=== PATIENT | female | born 1965 | race Caucasian/White ===

== ENCOUNTER 2016-05-05 06:42 | Emergency (ER) | payer MEDICAID ==
[2016-05-05] MEDS ORDERED: HYDROmorphone 2 MG/ML Syringe IVPUSH ONE (06:51)
[2016-05-05 06:58] VITALS: BP 100/76
[2016-05-05] MEDS ORDERED: Ondansetron 4 MG/2 ML SDV IVPUSH ONE (07:00)
[2016-05-05] MEDS ORDERED: Sodium Chloride 0.9% 1,000 ML IV ONE (07:02)
--- NOTE | 2016-05-05 07:05 | EDM.PDOC ---
ED HPI Trauma - General Chief Complaint: Upper Extremity Injury/Pain Stated Complaint: INJURED WRIST Time Seen by Provider: 05/05/16 06:56 - History of Present Illness INITIAL COMMENTS - FREE TEXT/NARRATIVE: HISTORY AND PHYSICAL: History of present illness: The patient is a 51-year-old female who presents after losing her balance and falling last evening approximately 10:30 PM and complains of left wrist pain. The patient has a history of old injuries on her right leg and chronically uses a cane so she has some issues with balance and she fell last evening. She denies any preceding dizziness lightheadedness chest pain shortness of breath but has had some issues with her stomach and intermittent vomiting for which she has seen Dr. Lainez at [facility]. That workup is currently in progress. The patient last ate or drank anything last evening for dinner and did not take anything for pain. She delayed coming here because of issues with transportation he complains of pain localized to the wrist and denies any distal hand pain numbness or tingling and no proximal forearm elbow shoulder pain and no other associated trauma. Patient is right-hand dominant. With the fall she did not hit her head pass out or black out and has no head neck or back pain Review of systems: As per history of present illness and below otherwise all systems reviewed and negative. Past medical history: As per history of present illness and as reviewed below otherwise noncontributory. Surgical history: As per history of present illness and as reviewed below otherwise noncontributory. Social history: No reported history of drug or alcohol abuse. Family history: As per history of present illness and as reviewed below otherwise noncontributory. Physical exam: General: Well-developed thin female who is nontoxic and looks uncomfortable in the room. Her vital signs reviewed by me. HEENT: Atraumatic, normocephalic, negative for conjunctival pallor or scleral icterus, mucous membranes moist, throat clear, neck supple, nontender, trachea midline. There are no midline step-offs tenderness or defects of the cervical spine Lungs: Clear to auscultation, breath sounds equal bilaterally, chest nontender. Heart: S1S2, regular, negative for clicks, rubs, or JVD. Abdomen: Soft, nondistended, nontender. NABS Negative for costovertebral tenderness. Pelvis: Stable nontender. Genitourinary: Deferred. Rectal: Deferred. Extremities: Atraumatic throat extremities with full range of motion with the exception of the left wrist where there is a visible "S." deformity and swelling appreciated. There is diffuse tenderness at the wrist the pulses are intact and proximally at the forearm elbow humerus and clavicle there are no defects or deformities and distally neurovascular intact with good cap refill., . Neurovascular unremarkable. Neuro: Awake, alert, oriented. Motor and sensory unremarkable throughout. Exam nonfocal. Diagnostics: X-ray left wrist Therapeutics: Dilaudid Zofran 0732: This was discussed with Dr. Kelly Lopez who requests that we place the patient in a post mold and send her immediately to her clinic where she will reduce and castor. The patient and at bedside are aware of this and we will perform this post mold in the ER. I will not prescribe her pain medications and allow Dr. Lopez to do that. Patient is aware of this as well Impression: Distal radial fracture with ulnar styloid fracture left Definitive disposition and diagnosis as appropriate pending reevaluation and review of above. Allergies/ADRs: Allergies adhesive tape Allergy (Verified 05/05/16 06:54) Itching Latex, Natural Rubber Allergy (Verified 05/05/16 06:54) Burning prochlorperazine [From Compazine] Allergy (Verified 05/05/16 06:54) Pain Review of Systems - Review of Systems Review Of Systems: ROS reveals no pertinent complaints other than HPI. Trauma Exam - Physical Exam Exam: See Below (See dictation) Course - Vital Signs Last Recorded V/S: Last Vital Signs Temp 36.4 C 05/05/16 06:54 Pulse 93 05/05/16 06:54 Resp 18 05/05/16 06:54 BP 100/76 05/05/16 06:54 Pulse Ox 96 05/05/16 06:54 - Orders/Labs/Meds Orders: Active Orders 24 hr Category Date Time Status Wrist Comp Min 3V Rt [CR] Stat Exams 05/05/16 07:01 Taken Sodium Chloride 0.9% [Normal Saline] 1,000 ml Med 05/05/16 07:02 Active IV STAT Medication Orders Sodium Chloride (Normal Saline) 1,000 mls @ 999 mls/hr IV STAT ONE Stop: 05/05/16 08:02 Meds: Medications Generic Name Dose Route Start Last Admin Trade Name Debbie PRN Reason Stop Dose Admin Sodium Chloride 1,000 mls @ 999 mls/hr 05/05/16 07:02 Normal Saline IV 05/05/16 08:02 STAT ONE Discontinued Medications Generic Name Dose Route Start Last Admin Trade Name Debbie PRN Reason Stop Dose Admin Hydromorphone HCl 0.5 mg 05/05/16 06:51 05/05/16 06:59 Dilaudid IVPUSH 05/05/16 06:52 0.5 mg ONETIME ONE Administration Ondansetron HCl 4 mg 05/05/16 07:00 05/05/16 07:05 Zofran IVPUSH 05/05/16 07:01 4 mg ONETIME ONE Administration Departure - Departure Time of Disposition: 07:40 Disposition: Home, Self-Care 01 Condition: good Clinical Impression: Fracture of radius and ulna Qualifiers: Encounter type: initial encounter Fracture type: closed Laterality: left Qualified Code(s): S52.502A - Unspecified fracture of the lower end of left radius, initial encounter for closed fracture; S52.602A - Unspecified fracture of lower end of left ulna, initial encounter for closed fracture Forms: ED Department Discharge Additional Instructions: The following information is given to patients seen in the emergency department who are being discharged to home. This information is to outline your options for follow-up care. We provide all patients seen in our emergency department with a follow-up referral. The need for follow-up, as well as the timing and circumstances, are variable depending upon the specifics of your emergency department visit. If you don't have a primary care physician on staff, we will provide you with a referral. We always advise you to contact your personal physician following an emergency department visit to inform them of the circumstance of the visit and for follow-up with them and/or the need for any referrals to a consulting specialist. The emergency department will also refer you to a specialist when appropriate. This referral assures that you have the opportunity for followup care with a specialist. All of these measure are taken in an effort to provide you with optimal care, which includes your followup. Under all circumstances we always encourage you to contact your private physician who remains a resource for coordinating your care. When calling for followup care, please make the office aware that this follow-up is from your recent emergency room visit. If for any reason you are refused follow-up, please contact the [facility] emergency department at and ask to speak to the emergency department charge nurse. [facility] [address] [place] [address] [facility]Or[facility]opedic clinic Professional Building [address] [place] [address] [address] [place] [address] Please go immediately over to the building to see Dr. Kelly Lopez in her clinic for further fracture management. Please ask her for pain medications for home when you get there. Please do not take the splint off until you're seen in the clinic. Please also call and followup with your primary provider at [facility] for further care management of your other medical issues and return to ER as needed and as discussed - My Orders Last 24 Hours: My Active Orders 05/05/16 07:01 Wrist Comp Min 3V Rt [CR] Stat 05/05/16 07:02 Sodium Chloride 0.9% [Normal Saline] 1,000 ml IV STAT - Assessment/Plan Last 24 Hours: My Active Orders 05/05/16 07:01 Wrist Comp Min 3V Rt [CR] Stat 05/05/16 07:02 Sodium Chloride 0.9% [Normal Saline] 1,000 ml IV STAT
--- NOTE | 2016-05-05 13:46 | CR ---
EXAM DATE: 05/05/16 PATIENT'S AGE: 51 Patient: JON MAYBERRY Facility: [place], [place] Site . Site : [id number] Study: XRay Extremity Right wrist [id number]/23/2017 7:15:48 AM Ordering Physician: Dipika Pelletier Final Report: INDICATION: trauma. pt states fell last night, pain in right wrist FINDINGS: Three views of the right wrist show a distal right radius fracture which is mildly displaced and angulated. Fracture of the ulnar styloid which is also mildly displaced. No other evidence of acute fracture or dislocation. No other bony or soft tissue abnormalities identified. Dictated by Billy Rizzo MD @ 05/05/2016 7:29:15 AM Dictated by: Billy Rizzo MD @ 05/05/2016 07:29:31 (Electronic Signature) Report Signed by Proxy and Original Signed Document filed in the Medical Record. MTDD
== END 2016-05-05 07:57 | disposition home or self-care (01) ==
LOC: MERGE 06:42 → MW.ED 06:42
DX: S52.502A Unspecified fracture of the lower end of left radius, initial encounter for closed fracture (principal); S52.602A Unspecified fracture of lower end of left ulna, initial encounter for closed fracture; Z91.040 Latex allergy status; Z88.8 Allergy status to other drugs, medicaments and biological substances; W19.XXXA Unspecified fall, initial encounter
CPT/HCPCS: 73110; 96374; 96375; 99283; J1170; J2405; 99284

== ENCOUNTER → 2016-05-05 | Outpatient (CLI) | payer MEDICAID ==
--- NOTE | 2016-05-05 13:55 | CR ---
EXAMINATION: Left wrist HISTORY: Pain COMPARISON: 05/05/2016 TECHNIQUE: 2 views FINDINGS/IMPRESSION: There is a healing distal radius fracture, unchanged in position and alignment. Overlying cast material is noted. The previously demonstrated ulnar styloid fracture is not well ch aracterized.
== END ==
LOC: MW.CHORTHO 10:45
PROVIDERS: ATTEND Orthopaedic Surgery
DX: M25.532 Pain in left wrist (principal); S52.502D Unspecified fracture of the lower end of left radius, subsequent encounter for closed fracture with routine healing
CPT/HCPCS: 73100-26-LT; 73100-LT

== ENCOUNTER → 2016-05-09 | Outpatient (CLI) | payer MEDICAID ==
--- NOTE | 2016-05-10 09:15 | CR ---
EXAMINATION: Left wrist HISTORY: Fracture COMPARISON: 05/05/2016 TECHNIQUE: 2 views FINDINGS/IMPRESSION: There are healing distal radius and ulna fractures identified, unchanged in pos ition and alignment. Fine detail is obscured secondary to cast material.
== END | disposition home or self-care (01) ==
LOC: MW.CHORTHO 11:52
PROVIDERS: ATTEND Physician Assistant
DX: S52.502D Unspecified fracture of the lower end of left radius, subsequent encounter for closed fracture with routine healing (principal); S52.602D Unspecified fracture of lower end of left ulna, subsequent encounter for closed fracture with routine healing
CPT/HCPCS: 73100-26-LT; 73100-LT

== ENCOUNTER 2016-05-11 10:08 | Day surgery (SDC) | payer MEDICAID, OTHER ==
[~2016-05-11 10:08] MED LIST: Acetaminophen/oxyCODONE 325-5 MG Tab PO PRN; Lactated Ringers 1,000 ML IV SCH; Lidocaine 2% 5 ML SDV ONE; Midazolam 1 MG/ML 2 ML SDV ONE; Propofol 200 MG/20 ML SDV ONE; ceFAZolin 1 GM in Premix Bag 1 BAG IV SCH; fentaNYL 100 MCG/2 ML SDV ONE
--- NOTE | 2016-05-11 11:22 | PCM.OPNOTE ---
- General Post-Op/Procedure Note Date of Surgery/Procedure: 05/11/16 Operative Procedure(s): L wrist CR with PCP and open L CTR Post-Op Diagnosis: L CTS. L distal radius/uln styloid fx Anesthesia Technique: General LMA Primary Surgeon: Kelly Lopez Aircraft Load Controller: Sari Mcclain EBKelsey in mLs: 5 Condition: Good Free Text/Narrative:: tt=8 min #[id number]
--- NOTE | 2016-05-11 12:18 | PCM.PREANE ---
Preanesthetic Assessment - Anesthesia/Transfusion/Family Hx Anesthesia History: Prior Anesthesia Reaction Type of Anesthesia Reaction: Excessive Nausea/Vomiting Family History of Anesthesia Reaction: No Transfusion History: Prior Transfusion Without Reaction - Review of Systems General: No Symptoms Pulmonary: No Symptoms Cardiovascular: No Symptoms Gastrointestinal: No symptoms Neurological: No Symptoms Other: Reports: None - Physical Assessment NPO Status Date: 05/10/16 (sips with meds this am) O2 Sat by Pulse Oximetry: 98 Respiratory Rate: 18 Vital Signs: Last Vital Signs Temp 36.1 C 05/11/16 10:56 Pulse 65 05/11/16 10:56 Resp 18 05/11/16 10:56 BP 89/57 L 05/11/16 10:56 Pulse Ox 98 05/11/16 10:56 Height: 1.66 m Weight: 49.442 kg ASA Class: 3 Mental Status: Alert & Oriented x3 Airway Class: Mallampati = 2 Dentition: Reports: Normal Dentition ROM/Head Extension: Full Lungs: Clear to auscultation Cardiovascular: Regular Rate - Allergies Allergies/Adverse Reactions: Allergies Allergy/AdvReac Type Severity Reaction Status Date / Time adhesive tape Allergy Itching Verified 05/05/16 06:54 latex Allergy Rash Verified 11/10/15 19:34 Latex, Natural Rubber Allergy Burning Verified 05/05/16 06:54 prochlorperazine Allergy Pain Verified 05/05/16 06:54 [From Compazine] prochlorperazine edisylate Allergy Anaphylactic Verified 08/16/15 19:57 [From Compazine] Shock prochlorperazine maleate Allergy Anaphylactic Verified 08/16/15 19:57 [From Compazine] Shock bandaid Allergy Rash Uncoded 11/10/15 19:34 histex Allergy Other Uncoded 11/10/15 19:34 - Anesthesia Plan Pre-Op Medication Ordered: None - Acknowledgements Anesthesia Type Planned: General Anesthesia Pt an Appropriate Candidate for the Planned Anesthesia: Yes Alternatives and Risks of Anesthesia Discussed w Pt/Guardian: Yes Pt/Guardian Understands and Agrees with Anesthesia Plan: Yes Additional Comments: BMP pending PreAnesthesia Questionnaire HEENT History: Reports: Cataract, Glaucoma, Other (see below) Other HEENT History: wears glasses, has permanent lower dental bridge, hx of fx nose Cardiovascular History: Reports: Hypertension, PA Other Cardiovascular History: states had PA last summer...no stents put in. Denies current chest pain. Having syncopal episodes, ?orthostatic hpn? Bps 60- 80s. antihypertensive meds stopped yest. on diuretics. Will check K Respiratory History: Reports: Bronchitis, recurrent, COPD Gastrointestinal History: Reports: GERD Genitourinary History: Reports: None DIRECT CHILL CASTER History: Reports: Other OB/BYN History: hysterectomy Musculoskeletal History: Reports: Arthritis, Fracture Other Musculoskeletal History: left hip, right ankle, left ring and pinky finger Neurological History: Reports: Concussion, Migraines, Seizure Other Neuro History: hx of alcohol induced seizure 2 years ago Psychiatric History: Reports: Anxiety, Depression Endocrine/Metabolic History: Reports: Other (see below) Other Endocrine/Metabolic History: states has Hypoglycemia Hematologic History: Reports: Blood transfusion(s) Immunologic History: Reports: None Oncologic (Cancer) History: Reports: Uterine Dermatologic History: Reports: Eczema - Infectious Disease History Infectious Disease History: Reports: Chicken pox, None - Past Surgical History Head Surgeries/Procedures: Reports: None HEENT Surgical History: Reports: Visual Other HEENT Surgeries/Procedures: has right permanent occular implant Cardiovascular Surgical History: Reports: None Respiratory Surgical History: Reports: None GI Surgical History: Reports: None Female Surgical History: Reports: section, Hysterectomy Endocrine Surgical History: Reports: None Neurological Surgical History: Reports: None Musculoskeletal Surgical History: Reports: ORIF Other Musculoskeletal Surgeries/Procedures:: left hip, right ankle Oncologic Surgical History: Reports: None Dermatological Surgical History: Reports: None - SUBSTANCE USE Smoking Status *Q: Former Smoker Tobacco Use Within Last Twelve Months: No Second Hand Smoke Exposure: Yes Days Per Week of Alcohol Use: 7 Number of Drinks Per Day: 1 Total Drinks Per Week: 7 Recreational Drug Use History: Yes Recreational Drug Type: Reports: Marijuana/Hashish Recreational Drug Last Use: 2 days ago - HOME MEDS Home Medications: Home Meds Losartan/Hydrochlorothiazide [Losartan-HCTZ 100-25 MG] 1 each PO DAILY 06/28/14 [History] Metoprolol Tartrate 50 mg PO BID 06/28/14 [History] Omeprazole 40 mg PO ACBREAKFAST 06/28/14 [History] ALPRAZolam [Xanax] 0.5 mg PO ASDIRECTED PRN 05/10/16 [History] Aspirin [Adult Low Dose Aspirin EC] 81 mg PO DAILY 05/10/16 [History] B Magnesium 500 mg PO BID 05/10/16 [History] C Oxytocin 7.5 unit PO ASDIRECTED PRN 05/10/16 [History] Citalopram [Celexa] 20 mg PO DAILY 05/10/16 [History] Fluticasone/Vilanterol [Breo Ellipta 100-25 MCG Inhalation Kit] 1 dose INH DAILY 05/10/16 [History] Folic Acid 1 mg PO DAILY 05/10/16 [History] Ipratropium/Albuterol Sulfate [Combivent Respimat Inhal [place]] 1 spray INH ASDIRECTED PRN 05/10/16 [History] Methocarbamol 750 mg PO TID 05/10/16 [History] SUMAtriptan [Imitrex] 100 mg PO ASDIRECTED PRN 05/10/16 [History] oxyCODONE HCl/Acetaminophen [Endocet 5-325 Tablet] 1 tab PO ASDIRECTED PRN 05/10 [History] traMADol [Ultram] 50 mg PO TID 05/10/16 [History] traZODone HCl [Trazodone HCl] 100 mg PO DAILY 05/10/16 [History] - CURRENT (IN HOUSE) MEDS Current Meds: Current Medications Lactated Ringer's (Ringers, Lactated) 1,000 mls @ 100 mls/hr IV ASDIRECTED [facility] Last Admin: 05/11/16 10:59 Dose: 100 mls/hr Cefazolin Sodium/Dextrose 1 gm (/ Premix) 50 mls @ 100 mls/hr IV ONCALL [facility] Oxycodone/Acetaminophen (Percocet 325-5 Mg) 1 - 2 tab PO Q4H PRN PRN Reason: Pain Discontinued Medications Fentanyl (Sublimaze) Confirm Administered Dose 100 mcg .ROUTE .STK-MED ONE Stop: 05/11/16 09:14 Lidocaine (Xylocaine-Mpf 2%) Confirm Administered Dose 5 ml .ROUTE .STK-MED ONE Stop: 05/11/16 09:14 Midazolam HCl (Versed 1 Mg/Ml) Confirm Administered Dose 2 mg .ROUTE .STK-MED ONE Stop: 05/11/16 09:14 Propofol (Diprivan 20 Ml) Confirm Administered Dose 200 mg .ROUTE .STK-MED ONE Stop: 05/11/16 09:14 Preanesthetic Assessment - ANESTHESIA/TRANSFUSION/FAMILY HX Anesthesia/Transfusion History: Prior Anesthesia, Prior Transfusion Family History of Anesthesia Reaction: Yes Intubation History: Intubated Other than for Surgery in Past - PHYSICAL ASSESSMENT O2 Sat by Pulse Oximetry: 98 RR: 18 Vital Signs: Last Vital Signs Temp 36.1 C 05/11/16 10:56 Pulse 65 05/11/16 10:56 Resp 18 05/11/16 10:56 BP 89/57 L 05/11/16 10:56 Pulse Ox 98 05/11/16 10:56 Height: 1.66 m Weight: 49.442 kg - ALLERGIES Allergies/Adverse Reactions: Allergies Allergy/AdvReac Type Severity Reaction Status Date / Time adhesive tape Allergy Itching Verified 05/05/16 06:54 latex Allergy Rash Verified 11/10/15 19:34 Latex, Natural Rubber Allergy Burning Verified 05/05/16 06:54 prochlorperazine Allergy Pain Verified 05/05/16 06:54 [From Compazine] prochlorperazine edisylate Allergy Anaphylactic Verified 08/16/15 19:57 [From Compazine] Shock prochlorperazine maleate Allergy Anaphylactic Verified 08/16/15 19:57 [From Compazine] Shock bandaid Allergy Rash Uncoded 11/10/15 19:34 histex Allergy Other Uncoded 11/10/15 19:34
[2016-05-11] MEDS ORDERED: Bupivacaine 0.25% 10 ML SDV ONE (12:23)
[2016-05-11] MEDS ORDERED: Bupivacaine 0.25%/EPINEPHrine 1:200,000 10 ML SDV ONE (12:23)
[2016-05-11] MEDS ORDERED: Lidocaine 1% 50 ML MDV ONE (12:23)
[2016-05-11 13:01] LABS: CHLORIDE,CL 105 mmol/L (98-110); SODIUM,NA 140 mmol/L (136-146)
[2016-05-11] MEDS ORDERED: ceFAZolin 1 GM Vial ONE (13:23)
[2016-05-11] MEDS ORDERED: Sodium Chloride 0.9% 20 ML ONE (13:23)
[2016-05-11] MEDS ORDERED: Phenylephrine/Normal Saline 100 MCG/ML 10 ML Syringe ONE (13:27)
[2016-05-11] MEDS ORDERED: Ondansetron 4 MG/2 ML SDV ONE (13:44)
[2016-05-11] MEDS ORDERED: Ketorolac 30 MG/ML SDV ONE (13:44)
[2016-05-11] MEDS ORDERED: fentaNYL 100 MCG/2 ML SDV ONE (13:50)
--- NOTE | 2016-05-11 14:47 | PCM.POSTAN ---
POST ANESTHESIA ASSESSMENT - MENTAL STATUS Mental Status: alert, oriented - RESPIRATORY Respiratory Status: respiratory rate WNL, airway patent, O2 saturation stable - CARDIOVASCULAR CV Status: pulse rate WNL, blood pressure stable - GASTROINTESTINAL GI Status: no symptoms - PAIN Pain Score: 6 Free Text/Narrative:: getting a dose of fentanyl - POST OP HYDRATION Hydration Status: adequate & stable
[2016-05-11] MEDS: fentaNYL 100 MCG/2 ML SDV IVPUSH PRN ×2 (14:48→14:53)
--- NOTE | 2016-05-11 16:43 | PCM48HPAN ---
Post Anesthesia Note - EVALUATION WITHIN 48HRS OF ANESTHETIC Vital Signs in Normal Range: Yes Patient Participated in Evaluation: Yes Respiratory Function Stable: Yes Airway Patent: Yes Cardiovascular Function Stable: Yes Hydration Status Stable: Yes Pain Control Satisfactory: Yes Nausea and Vomiting Control Satisfactory: Yes Mental Status Recovered: Yes
--- NOTE | 2016-05-11 16:50 | CR ---
EXAMINATION: Left wrist HISTORY: Reduction COMPARISON: 05/09/2016 TECHNIQUE: 2 views FINDINGS/IMPRESSION: Operative control films demonstrate 2 K wires fixating a radial styloid fractur e. There is an adjacent mildly displaced ulnar styloid fracture noted.
[2016-05-11 17:01] VITALS: BP 108/70
--- NOTE | 2016-05-13 13:42 | OR ---
SURGEON: Kelly Lopez MD DATE OF PROCEDURE: 05/11/2016 PREOPERATIVE DIAGNOSES: 1. Left distal radius fracture. 2. Left ulnar styloid fracture. 3. Acute left carpal tunnel syndrome. POSTOPERATIVE DIAGNOSES: 1. Left distal radius fracture. 2. Left ulnar styloid fracture. 3. Acute left carpal tunnel syndrome. PROCEDURE: 1. Closed reduction with percutaneous pinning, left distal radius fracture. 2. Left open carpal tunnel release. DIRECTOR OF SPORTS MEDICINE: Sari Mcclain MD, PGY-2 and John Sanchez PA-C. ANESTHESIA: General. ESTIMATED BLOOD LOSS: 5 mL. TOURNIQUET TIME: 8 minutes. COMPLICATIONS: None. DVT PROPHYLAXIS: Not indicated. IMPLANTS USED: Two 0.625 K-wires. BRIEF HISTORY: Lucila is a 51-year-old female, who injured her left wrist. She subsequently underwent closed reduction in the clinic. She developed increased numbness in her fingertips in the median nerve distribution. We did attempt a splint change, however, her paresthesias persisted. At that time, I recommended a carpal tunnel release. To prevent displacement of the fracture, I also recommended that she undergo closed reduction with percutaneous pinning of the fracture. The risks and goals of procedure were discussed with the patient and documented preoperatively. She agreed to proceed. DESCRIPTION OF PROCEDURE: The patient was properly identified and brought to the operating room. She was transferred from the OR cart and placed on the operating table in supine position. General anesthesia was administered. After adequate anesthesia was obtained, a well-padded tourniquet was applied to the left upper arm. Left upper extremity was then prepped in standard fashion using ChloraPrep solution. It was then sterilely draped. A time-out was performed to ensure correct site and procedure. Preoperative antibiotics were given. The surgical site had been marked preoperatively. Reduction of the distal radius fracture was performed. Using C-arm fluoroscopy, two 0.625 K-wires were passed from the radial styloid into the proximal fragment. C-arm images confirmed acceptable reduction of the fracture with adequate placement of the pins. These were then cut at the level of the skin were bent. The skin surrounding the pins was released to prevent any undue pressure. A suture was used to reapproximate the wound edges between the K-wires. We then turned our attention to the volar aspect of the wrist. An Esmarch was used to exsanguinate the left upper extremity. An incision made over the volar aspect of the wrist. The subcutaneous tissues were incised along with the palmar fascia. She did have some hemorrhagic tissue present in the musculature surrounding this. Once the transverse carpal ligament was identified, this was incised. Care was taken to release it proximally and distally. At completion, the nerve appeared to pink up as there appeared to be some blood within the carpal tunnel. The wound was then copiously irrigated with saline solution. The tourniquet was deflated. Electrocautery was used to maintain hemostasis. 3- 0 nylon was then used to close the wound edges. Xeroform gauze was placed over the wound along with the pin and a bulky dressing was applied. She was then placed in a volar wrist splint. She was awakened from her anesthetic and transferred back to the operating room cart. She was brought to recovery room in stable condition. All needle and sponge counts were correct. ANDREI / MALLORIE /[id number]
== END 2016-05-11 16:00 | disposition home or self-care (01) ==
LOC: MW.SDS 10:08
PROVIDERS: ATTEND Orthopaedic Surgery
PROC: 0PSJ34Z Reposition Left Radius with Internal Fixation Device, Percutaneous Approach (ICD-10-PCS; principal; 2016-05-11)
PROC: 01N50ZZ Release Median Nerve, Open Approach (ICD-10-PCS; 2016-05-11)
DX: S52.502A Unspecified fracture of the lower end of left radius, initial encounter for closed fracture (principal); S52.612A Displaced fracture of left ulna styloid process, initial encounter for closed fracture; G56.02 Carpal tunnel syndrome, left upper limb; J45.909 Unspecified asthma, uncomplicated; J44.9 Chronic obstructive pulmonary disease, unspecified; G89.29 Other chronic pain; F32.9 Major depressive disorder, single episode, unspecified; I10 Essential (primary) hypertension; M81.0 Age-related osteoporosis without current pathological fracture; H26.9 Unspecified cataract; H40.9 Unspecified glaucoma; I25.2 Old myocardial infarction; K21.9 Gastro-esophageal reflux disease without esophagitis; M19.90 Unspecified osteoarthritis, unspecified site; F41.9 Anxiety disorder, unspecified; Z79.51 Long term (current) use of inhaled steroids; Z79.899 Other long term (current) drug therapy; Z88.8 Allergy status to other drugs, medicaments and biological substances; Z91.040 Latex allergy status; Z91.048 Other nonmedicinal substance allergy status; Z87.891 Personal history of nicotine dependence; Z90.710 Acquired absence of both cervix and uterus; Z98.890 Other specified postprocedural states
CPT/HCPCS: 25606; 36415; 64721; 76000; 80048; A9270; J0690; J1885; J2250; J2405; J3010; J7120; 01810; J2704

== ENCOUNTER → 2016-05-24 | Outpatient (CLI) | payer MEDICAID ==
--- NOTE | 2016-05-24 15:27 | CR ---
EXAMINATION: Left wrist HISTORY: Fracture COMPARISON: 05/09/2016 TECHNIQUE: 2 views FINDINGS/IMPRESSION: 2 pins fixate a distal radius fracture, unchanged in position and alignment. Th ere is an adjacent minimally displaced ulnar styloid fracture. Remaining osseous structures appear i ntact.
== END | disposition home or self-care (01) ==
LOC: MW.CHORTHO 07:51
PROVIDERS: ATTEND Physician Assistant
DX: S52.502A Unspecified fracture of the lower end of left radius, initial encounter for closed fracture (principal); S52.612A Displaced fracture of left ulna styloid process, initial encounter for closed fracture
CPT/HCPCS: 73100-26-LT; 73100-LT

== ENCOUNTER → 2016-06-21 | Outpatient (CLI) | payer MEDICAID ==
--- NOTE | 2016-06-21 16:18 | CR ---
EXAMINATION: Left wrist HISTORY: Pain COMPARISON: 05/24/2016 TECHNIQUE: 2 views FINDINGS/IMPRESSION: 2 wires are noted fixating a distal radius fracture, unchanged in position and alignment. There is an adjacent nondisplaced ulnar styloid fracture. The radiocarpal alignment appea rs normal.
== END ==
LOC: MW.CHORTHO 08:02
PROVIDERS: ATTEND Orthopaedic Surgery
DX: M25.532 Pain in left wrist (principal); Z98.890 Other specified postprocedural states; S52.615A Nondisplaced fracture of left ulna styloid process, initial encounter for closed fracture
CPT/HCPCS: 73100-26-LT; 73100-LT

== ENCOUNTER 2017-01-08 10:20 | Emergency (ER) | payer MEDICAID ==
[2017-01-08] MEDS ORDERED: Ondansetron 4 MG/2 ML SDV IVPUSH ONE (10:48)
[2017-01-08] MEDS ORDERED: HYDROmorphone 1 MG/ML Syringe IVPUSH ONE ×3 (10:48→11:33)
[2017-01-08] MEDS ORDERED: Sodium Chloride 0.9% 2.5 ML Syringe FLUSH PRN (10:49)
[2017-01-08] MEDS ORDERED: Sodium Chloride 0.9% 10 ML Syringe FLUSH PRN (10:49)
[2017-01-08] MEDS ORDERED: Sodium Chloride 0.9% 1,000 ML IV ONE ×2 (10:49→11:33)
--- NOTE | 2017-01-08 11:34 | EDM.PDOC ---
ED HPI GENERAL MEDICAL PROBLEM - General Chief Complaint: Lower Extremity Injury/Pain Stated Complaint: RIGHT HIP PAIN Time Seen by Provider: 01/08/17 10:25 Source of Information: Reports: Patient, Family - History of Present Illness INITIAL COMMENTS - FREE TEXT/NARRATIVE: HISTORY AND PHYSICAL: 51-year-old female presenting with right hip pain to fall last night about 9- 9:30 History of Present Illness: []Patient reports she had difficulty walking and pain increased today She reports having had a she has had hysterectomy last year had cataract surgery with lens implant She reports having "metal" left hip and ankle later to injuries Review of Systems: As per history of present illness and below otherwise all systems reviewed and negative. Past medical history: As per history of present illness and as reviewed below otherwise noncontributory. Surgical history: As per history of present illness and as reviewed below otherwise noncontributory. Social history: No reported history of drug or alcohol abuse. Family history: As per history of present illness and as reviewed below otherwise noncontributory. Physical exam: Alert and oriented frail-looking female shaking with pain. She does drink fluids today last meal was yesterday. Answering questions appropriately in full sentences mild shortness of breath. HEENT: Atraumatic, normocehpalic, pupils reactive, negative for conjunctival pallor or scleral icterus, mucous membranes moist, throat clear, neck supple, nontender, trachea midline. Lungs: Clear to auscultation, breath sounds equal bilaterally, chest non tender. Heart: S1S2, regular, negative for clicks, rubs, or JVD. Abdomen: Soft, nondistended, nontender. Negative for masses or hepatossplenmegaly. Negative for costovertebral tenderness. Pelvis: External rotation is noted to her right leg and shortening. Interval with palpation Genitourinary: Deferred. Rectal: Deferred Extremities: Atraumatic, negative for cords or calf pain. Neurovascular unremarkable. Neuro: Awake, alert, oriented. Cranial nerves II through XII unremarkable. Cerebellum unremarkable. Motor and sensory unremarkable throughout. Exam nonfocal. Have discussed this case with Dr. Pugh orthopedist and has accepted this patient for transfer Have discussed the case with Dr. Hernandez ER physician [facility] and he has accepted this patient for transfer to ER, we will modify Dr. Hill patient is present. Diagnostics: [One view pelvis] Therapeutics: [IV fluids and Dilaudid Zofran ] Impression: [Right trochanteric fracture] Plan: [Transfer to [facility] Transfer papers have been completed] Definitive disposition and diagnosis as appropriate pending reevaluation and review of above. Onset: Sudden Duration: Day(s): (1) Location: Reports: Lower Extremity, Right right hip Pain Score (Numeric/FACES): 10 occiput Pain Score (Numeric/FACES): 3 - Related Data Allergies Allergy/AdvReac Type Severity Reaction Status Date / Time adhesive tape Allergy Itching Verified 01/08/17 10:43 latex Allergy Rash Verified 01/08/17 10:43 Latex, Natural Rubber Allergy Burning Verified 01/08/17 10:43 prochlorperazine Allergy Pain Verified 01/08/17 10:43 [From Compazine] prochlorperazine edisylate Allergy Anaphylactic Verified 01/08/17 10:43 [From Compazine] Shock prochlorperazine maleate Allergy Anaphylactic Verified 01/08/17 10:43 [From Compazine] Shock bandaid Allergy Rash Uncoded 01/08/17 10:43 histex Allergy Other Uncoded 01/08/17 10:43 Home Meds: Home Meds Losartan/Hydrochlorothiazide [Losartan-HCTZ 100-25 MG] 1 each PO DAILY 06/28/14 [History] Metoprolol Tartrate 50 mg PO BID 06/28/14 [History] Omeprazole 40 mg PO ACBREAKFAST 06/28/14 [History] ALPRAZolam [Xanax] 0.5 mg PO ASDIRECTED PRN 05/10/16 [History] Aspirin [Adult Low Dose Aspirin EC] 81 mg PO DAILY 05/10/16 [History] B Magnesium 500 mg PO BID 05/10/16 [History] C Oxytocin 7.5 unit PO ASDIRECTED PRN 05/10/16 [History] Citalopram [Celexa] 20 mg PO DAILY 05/10/16 [History] Fluticasone/Vilanterol [Breo Ellipta 100-25 MCG Inhalation Kit] 1 dose INH DAILY 05/10/16 [History] Folic Acid 1 mg PO DAILY 05/10/16 [History] Ipratropium/Albuterol Sulfate [Combivent Respimat Inhal [place]] 1 spray INH ASDIRECTED PRN 05/10/16 [History] Methocarbamol 750 mg PO TID 05/10/16 [History] SUMAtriptan [Imitrex] 100 mg PO ASDIRECTED PRN 05/10/16 [History] oxyCODONE HCl/Acetaminophen [Endocet 5-325 Tablet] 1 tab PO ASDIRECTED PRN 05/10 [History] traMADol [Ultram] 50 mg PO TID 05/10/16 [History] traZODone HCl [Trazodone HCl] 100 mg PO DAILY 05/10/16 [History] Past Medical History HEENT History: Reports: Cataract, Glaucoma, Other (See Below) Other HEENT History: wears glasses, has permanent lower dental bridge, hx of fx nose Cardiovascular History: Reports: Hypertension, [place] Other Cardiovascular History: states had [place] last summer...no stents put in. Denies current chest pain. Having syncopal episodes, ?orthostatic hpn? Bps 60- 80s. antihypertensive meds stopped yest. on diuretics. 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 OB/BYN History: hysterectomy Musculoskeletal History: Reports: Arthritis, Fracture Other Musculoskeletal History: left hip, right ankle, left ring and pinky finger Neurological History: Reports: Concussion, Migraines, Seizure Other Neuro History: hx of alcohol induced seizure 2 years ago Psychiatric History: Reports: Anxiety, Depression Endocrine/Metabolic History: Reports: Other (See Below) Other Endocrine/Metabolic History: hypoglycemia Hematologic History: Reports: Blood Transfusion(s) Immunologic History: Reports: None Oncologic (Cancer) History: Reports: Uterine Dermatologic History: Reports: Eczema - Infectious Disease History Infectious Disease History: Reports: Chicken Pox, None - Past Surgical History Head Surgeries/Procedures: Reports: None Cardiovascular Surgical History: Reports: None GI Surgical History: Reports: None Female Surgical History: Reports: Section, Hysterectomy Neurological Surgical History: Reports: None Musculoskeletal Surgical History: Reports: ORIF Other Musculoskeletal Surgeries/Procedures:: left hip, right ankle Oncologic Surgical History: Reports: None Dermatological Surgical History: Reports: None Social & Family History - Family History Family Medical History: Noncontributory HEENT: Reports: Glaucoma Musculoskeletal: Reports: Arthritis, Osteoporosis Neurological: Reports: Dementia Psychiatric: Reports: ADD Endocrine/Metabolic: Reports: Diabetes, type II Dermatologic: Reports: Eczema, Psoriasis Oncologic: Reports: Bone, Brain, Lung - Tobacco Use Smoking Status *Q: Current Every Day Smoker Years of Tobacco use: 30 Packs/Tins Daily: 1 Used Tobacco, but Quit: No Month Tobacco Last Used: August Second Hand Smoke Exposure: Yes - Caffeine Use Caffeine Use: Reports: None, Soda - Alcohol Use Days Per Week of Alcohol Use: 7 Number of Drinks Per Day: 1 Total Drinks Per Week: 7 - Recreational Drug Use Recreational Drug Use: Yes Drug Use in Last 12 Months: Yes Recreational Drug Type: Reports: Marijuana/Hashish Recreational Drug Use Frequency: Daily Recreational Drug Last Use: 2 days ago Review of Systems - Review of Systems Review Of Systems: ROS reveals no pertinent complaints other than HPI. ED EXAM, GENERAL - Physical Exam Exam: See Below (see dictation) Course - Vital Signs Last Recorded V/S: Last Vital Signs Temp 37.2 C 01/08/17 11:35 Pulse 88 01/08/17 11:50 Resp 18 01/08/17 11:50 BP 171/101 H 01/08/17 11:50 Pulse Ox 96 01/08/17 11:50 - Orders/Labs/Meds Orders: Active Orders 24 hr Category Date Time Status EKG Documentation Completion [RC] STAT Care 01/08/17 11:14 Active Garcia Catheter Insertion [Insert Urinary Catheter] [OM. Care 01/08/17 12:00 Ordered PC] Q24H Urinary Catheter Assessment [RC] ASDIRECTED Care 01/08/17 11:56 Active Hip Min 1V Rt [CR] Stat Exams 01/08/17 10:48 Stop Req Pelvis 1V or 2V [CR] Stat Exams 01/08/17 11:02 Taken Sodium Chloride 0.9% [Normal Saline] 1,000 ml Med 01/08/17 11:33 Active IV STAT Sodium Chloride 0.9% [Saline Flush] Med 01/08/17 10:49 Active 10 ml FLUSH ASDIRECTED PRN Sodium Chloride 0.9% [Saline Flush] Med 01/08/17 10:49 Active 2.5 ml FLUSH ASDIRECTED PRN Saline Lock Insert [OM.PC] Stat Oth 01/08/17 10:49 Ordered Medication Orders Sodium Chloride (Normal Saline) 1,000 mls @ 125 mls/hr IV STAT ONE Stop: 01/08/17 19:32 Last Admin: 01/08/17 11:45 Dose: 125 mls/hr Sodium Chloride (Saline Flush) 10 ml FLUSH ASDIRECTED PRN PRN Reason: Keep Vein Open Sodium Chloride (Saline Flush) 2.5 ml FLUSH ASDIRECTED PRN PRN Reason: Keep Vein Open Labs: Laboratory Tests 01/08/17 01/08/17 Range/Units 10:50 10:50 WBC 15.78 H (4.0-11.0) K/uL RBC 4.41 (4.30-5.90) M/uL Hgb 15.4 (12.0-16.0) g/dL Hct 45.3 (36.0-46.0) % MCV 102.7 H (80.0-98.0) fL MCH 34.9 H (27.0-32.0) pg MCHC 34.0 (31.0-37.0) g/dL RDW Std Deviation 49.9 (28.0-62.0) fl RDW Coeff of Brooke 13 (11.0-15.0) % Plt Count 144 L (150-400) K/uL MPV 10.70 (7.40-12.00) fL Neut % (Auto) 87.6 H (48.0-80.0) % Lymph % (Auto) 5.9 L (16.0-40.0) % [place] % (Auto) 6.4 (0.0-15.0) % Eos % (Auto) 0.0 (0.0-7.0) % Baso % (Auto) 0.1 (0.0-1.5) % Neut # (Auto) 13.8 H (1.4-5.7) K/uL Lymph # (Auto) 0.9 (0.6-2.4) K/uL [place] # (Auto) 1.0 H (0.0-0.8) K/uL Eos # (Auto) 0.0 (0.0-0.7) K/uL Baso # (Auto) 0.0 (0.0-0.1) K/uL Nucleated RBC % 0.0 /100WBC Nucleated RBCs # 0 K/uL Sodium 137 (136-146) mmol/L Potassium 3.5 (3.5-5.1) mmol/L Chloride 98 (98-110) mmol/L Carbon Dioxide 18 L (21-31) mmol/L BUN 7 (6.0-23.0) mg/dL Creatinine 0.7 (0.6-1.5) mg/dL Est Cr Clr Drug Dosing 72.50 mL/min Estimated GFR (MDRD) > 60.0 ml/min Glucose 151 H (60-110) mg/dL Calcium 9.4 (8.8-10.8) mg/dL Total Bilirubin 1.3 (0.1-1.5) mg/dL AST 67 H (5-40) IU/L ALT 48 (8-54) IU/L Alkaline Phosphatase 165 H (40-150) Total Protein 8.0 (6.0-8.0) g/dL Albumin 4.4 (3.5-5.0) g/dL Globulin 3.6 H (2.0-3.5) g/dL Albumin/Globulin Ratio 1.2 L (1.3-2.8) Meds: Medications Generic Name Dose Route Start Last Admin Trade Name Freq PRN Reason Stop Dose Admin Sodium Chloride 1,000 mls @ 125 mls/hr 01/08/17 11:33 01/08/17 11:45 Normal Saline IV 01/08/17 19:32 125 mls/hr STAT ONE Administration Sodium Chloride 10 ml 01/08/17 10:49 Saline Flush FLUSH ASDIRECTED PRN Keep Vein Open Sodium Chloride 2.5 ml 01/08/17 10:49 Saline Flush FLUSH ASDIRECTED PRN Keep Vein Open Discontinued Medications Generic Name Dose Route Start Last Admin Trade Name Freq PRN Reason Stop Dose Admin Hydromorphone HCl 1 mg 01/08/17 10:48 01/08/17 10:56 Dilaudid IVPUSH 01/08/17 10:49 1 mg ONETIME ONE Administration Hydromorphone HCl 1 mg 01/08/17 11:06 01/08/17 11:12 Dilaudid IVPUSH 01/08/17 11:07 1 mg ONETIME ONE Administration Hydromorphone HCl 2 mg 01/08/17 11:33 01/08/17 11:44 Dilaudid IVPUSH 01/08/17 11:34 2 mg ONETIME ONE Administration Sodium Chloride 1,000 mls @ 999 mls/hr 01/08/17 10:49 01/08/17 11:17 Normal Saline IV 01/08/17 11:49 999 mls/hr STAT ONE Administration Ondansetron HCl 4 mg 01/08/17 10:48 01/08/17 10:55 Zofran IVPUSH 01/08/17 10:49 4 mg ONETIME ONE Administration Departure - Departure Time of Disposition: 11:58 Disposition: DC/Tfer to Acute Hospital 02 Condition: Good Clinical Impression: Intertrochanteric fracture, hip - Discharge Information Referrals: PCP,Unknown [Primary Care Provider] - Forms: ED Department Discharge - My Orders Last 24 Hours: My Active Orders 01/08/17 10:48 Hip Min 1V Rt [CR] Stat 01/08/17 10:49 Sodium Chloride 0.9% [Saline Flush] 10 ml FLUSH ASDIRECTED PRN Sodium Chloride 0.9% [Saline Flush] 2.5 ml FLUSH ASDIRECTED PRN Saline Lock Insert [OM.PC] Stat 01/08/17 11:02 Pelvis 1V or 2V [CR] Stat 01/08/17 11:14 EKG Documentation Completion [RC] STAT 01/08/17 11:33 Sodium Chloride 0.9% [Normal Saline] 1,000 ml IV STAT 01/08/17 11:56 Urinary Catheter Assessment [RC] ASDIRECTED 01/08/17 12:00 Garcia Catheter Insertion [Insert Urinary Catheter] [OM.PC] Q24H - Assessment/Plan Last 24 Hours: My Active Orders 01/08/17 10:48 Hip Min 1V Rt [CR] Stat 01/08/17 10:49 Sodium Chloride 0.9% [Saline Flush] 10 ml FLUSH ASDIRECTED PRN Sodium Chloride 0.9% [Saline Flush] 2.5 ml FLUSH ASDIRECTED PRN Saline Lock Insert [OM.PC] Stat 01/08/17 11:02 Pelvis 1V or 2V [CR] Stat 01/08/17 11:14 EKG Documentation Completion [RC] STAT 01/08/17 11:33 Sodium Chloride 0.9% [Normal Saline] 1,000 ml IV STAT 01/08/17 11:56 Urinary Catheter Assessment [RC] ASDIRECTED 01/08/17 12:00 Garcia Catheter Insertion [Insert Urinary Catheter] [OM.PC] Q24H
[2017-01-08 11:51] VITALS: BP 171/101
[2017-01-08 11:56] LABS: CHLORIDE,CL 98 mmol/L (98-110); SODIUM,NA 137 mmol/L (136-146)
--- NOTE | 2017-01-09 14:58 | CR ---
EXAM DATE: 01/08/17 PATIENT'S AGE: 51 Patient: JON MAYBERRY Facility: [place], [place] Site . Site : [id number] Study: XRay Pelvis [id number] 11:13:09 AM Ordering Physician: Doctor Forrester Final Report: INDICATION: Right hip pain. Technique: Portable pelvis. Findings: Comminuted intertrochanteric fracture of the right hip with varus deformity. The right femoral head remains situated within the acetabulum. The bony pelvic ring is intact. Internal fixation of the left hip. Impression: Inter trochanteric fracture of the right hip with varus deformity. Dictated by Trinity Porter MD @ Jan 08 2017 11:48AM (Electronic Signature) Report Signed by Proxy. JENA
== END 2017-01-08 12:10 ==
LOC: MW.ED 10:20
DX: S72.141A Displaced intertrochanteric fracture of right femur, initial encounter for closed fracture (principal); I10 Essential (primary) hypertension; F17.210 Nicotine dependence, cigarettes, uncomplicated; Z91.040 Latex allergy status; Z88.8 Allergy status to other drugs, medicaments and biological substances; Z79.899 Other long term (current) drug therapy; Z79.82 Long term (current) use of aspirin; W19.XXXA Unspecified fall, initial encounter
CPT/HCPCS: 72170; 80053; 81001; 85025; 93005; 96361; 96374; 96375; 96376; 99285; J1170; J2405; J7040

== ENCOUNTER 2017-03-08 10:31 | Emergency (ER) | payer MEDICAID ==
--- NOTE | 2017-03-08 10:48 | EDM.PDOC ---
ED HPI GENERAL MEDICAL PROBLEM - General Stated Complaint: FELL AND INJURED LEFT HIP Time Seen by Provider: 03/08/17 10:34 Source of Information: Reports: Patient History Limitations: Reports: No Limitations - History of Present Illness INITIAL COMMENTS - FREE TEXT/NARRATIVE: HISTORY AND PHYSICAL: History of present illness: Patient is a 52-year-old female who presents to the emergency room today with complaints of left hip pain. 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 She denies any loss of consciousness, blurred vision, confusion. Reports previous surgery to the left hip in 1992. Patient has a history of a right femur fracture on 01/08/2017 which she was initially seen in our emergency room and transferred to [facility] for treatment/ evaluation per Dr. Pugh, the orthopedist. Patient was last seen at our orthopedic clinic by Vannessa Diaz on 02/23/2017, a repeat pelvis and right hip x -ray was done that day; showing: a healing intertrochanter right femur fracture with no evidence of hardware complications. Past medical history of hypertension, bilateral hip fractures, hysterectomy, C- section, cataract surgery with lens Review of systems: As per history of present illness and below otherwise all systems reviewed and negative. Past medical history: As per history of present illness and as reviewed below otherwise noncontributory. Surgical history: As per history of present illness and as reviewed below otherwise noncontributory. Social history: No reported history of drug or alcohol abuse. Family history: As per history of present illness and as reviewed below otherwise noncontributory. Physical exam: Gen.: Nontoxic-appearing 52-year-old female. Alert and oriented. Appears in no acute distress. HEENT: Atraumatic, normocephalic, pupils reactive, negative for conjunctival pallor or scleral icterus, mucous membranes moist, throat clear, neck supple, nontender, trachea midline. Lungs: Clear to auscultation, breath sounds equal bilaterally, chest nontender. Heart: S1S2, regular, negative for clicks, rubs, or JVD. Abdomen: Soft, nondistended, nontender. Negative for masses or hepatosplenomegaly. Negative for costovertebral tenderness. Pelvis: Stable nontender. Genitourinary: Deferred. Rectal: Deferred. Extremities: Atraumatic, negative for cords or calf pain. Neurovascular unremarkable. Neuro: Awake, alert, oriented. Cranial nerves II through XII unremarkable. Cerebellum unremarkable. Motor and sensory unremarkable throughout. Exam nonfocal. Patient was able to ambulate with her walker into the emergency room. She states that "daily recently came in is because of the large not that popped up right away" to her left hip. She does currently take hydrocodone, Ultram and Subdermal Narcotic Patch for pain management. Head CT is negative with no evidence of fracture or bleeding. The cervical spine CT shows some degenerative changes but no acute findings. X-ray of the hip and pelvis show no acute findings. Hardware is intact. These results were reviewed with the patient. We did discuss taking her already prescribed medications for pain management along with applying some ice to the contusion over the next 24 hours. After that she may use heat as needed. Continue with her routine follow-up appointments with the orthopedic provider. She voices understanding and is agreeable to plan of care. She denies any questions at this time. Diagnostics: X-ray of pelvis and hip, CT head and C-spine Therapeutics: Ice Impression: Contusion Plan: 1. Head and neck CTs were normal. Hip and pelvis X-ray findings were normal. You do have some soft tissue swelling which he may use ice for the first 24 hours. After that he may alternate ice and heat as desired. Continue to take care prescribed pain medications as directed. 2. Follow-up with your primary care provider or orthopedic doctor in the next couple days. Return to the ED as needed and as discussed. Definitive disposition and diagnosis as appropriate pending reevaluation and review of above. Onset: Today Duration: Hour(s): Location: Reports: Pelvis left hip Pain Score (Numeric/FACES): 7 - Related Data Allergies Allergy/AdvReac Type Severity Reaction Status Date / Time adhesive tape Allergy Itching Verified 03/08/17 10:36 latex Allergy Rash Verified 03/08/17 10:36 Latex, Natural Rubber Allergy Burning Verified 03/08/17 10:36 prochlorperazine Allergy Pain Verified 03/08/17 10:36 [From Compazine] prochlorperazine edisylate Allergy Anaphylactic Verified 03/08/17 10:36 [From Compazine] Shock prochlorperazine maleate Allergy Anaphylactic Verified 03/08/17 10:36 [From Compazine] Shock bandaid Allergy Rash Uncoded 01/08/17 10:43 histex Allergy Other Uncoded 01/08/17 10:43 Home Meds: Home Meds Losartan/Hydrochlorothiazide [Losartan-HCTZ 100-25 MG] 1 each PO DAILY 06/28/14 [History] Metoprolol Tartrate 50 mg PO BID 06/28/14 [History] Omeprazole 40 mg PO ACBREAKFAST 06/28/14 [History] ALPRAZolam [Xanax] 0.5 mg PO ASDIRECTED PRN 05/10/16 [History] B Magnesium 500 mg PO BID 05/10/16 [History] C Oxytocin 7.5 unit PO ASDIRECTED PRN 05/10/16 [History] Citalopram [Celexa] 20 mg PO DAILY 05/10/16 [History] Fluticasone/Vilanterol [Breo Ellipta 100-25 MCG Inhalation Kit] 1 dose INH DAILY 05/10/16 [History] Folic Acid 1 mg PO DAILY 05/10/16 [History] Ipratropium/Albuterol Sulfate [Combivent Respimat Inhal [place]] 1 spray INH ASDIRECTED PRN 05/10/16 [History] Methocarbamol 750 mg PO TID 05/10/16 [History] SUMAtriptan [Imitrex] 100 mg PO ASDIRECTED PRN 05/10/16 [History] traMADol [Ultram] 50 mg PO TID 05/10/16 [History] traZODone HCl [Trazodone HCl] 100 mg PO DAILY 05/10/16 [History] Past Medical History HEENT History: Reports: Cataract, Glaucoma, Other (See Below) Other HEENT History: wears glasses, has permanent lower dental bridge, hx of fx nose Cardiovascular History: Reports: Hypertension, MT Other Cardiovascular History: states had MT last summer...no stents put in. Denies current chest pain. Having syncopal episodes, ?orthostatic hpn? Bps 60- 80s. antihypertensive meds stopped yest. on diuretics. 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 OB/BYN History: hysterectomy Musculoskeletal History: Reports: Arthritis, Fracture Other Musculoskeletal History: left hip, right ankle, left ring and pinky finger Neurological History: Reports: Concussion, Migraines, Seizure Other Neuro History: hx of alcohol induced seizure 2 years ago Psychiatric History: Reports: Anxiety, Depression Endocrine/Metabolic History: Reports: Other (See Below) Other Endocrine/Metabolic History: hypoglycemia Hematologic History: Reports: Blood Transfusion(s) Immunologic History: Reports: None Oncologic (Cancer) History: Reports: Uterine Dermatologic History: Reports: Eczema - Infectious Disease History Infectious Disease History: Reports: Chicken Pox, None - Past Surgical History Head Surgeries/Procedures: Reports: None Cardiovascular Surgical History: Reports: None GI Surgical History: Reports: None Female Surgical History: Reports: Section, Hysterectomy Neurological Surgical History: Reports: None Musculoskeletal Surgical History: Reports: ORIF Other Musculoskeletal Surgeries/Procedures:: left hip, right ankle Oncologic Surgical History: Reports: None Dermatological Surgical History: Reports: None Social & Family History - Family History Family Medical History: Noncontributory HEENT: Reports: Glaucoma Musculoskeletal: Reports: Arthritis, Osteoporosis Neurological: Reports: Dementia Psychiatric: Reports: ADD Endocrine/Metabolic: Reports: Diabetes, type II Dermatologic: Reports: Eczema, Psoriasis Oncologic: Reports: Bone, Brain, Lung - Tobacco Use Smoking Status *Q: Current Every Day Smoker Years of Tobacco use: 30 Packs/Tins Daily: 1 Used Tobacco, but Quit: No Month Tobacco Last Used: August Second Hand Smoke Exposure: Yes - Caffeine Use Caffeine Use: Reports: None, Soda - Alcohol Use Days Per Week of Alcohol Use: 7 Number of Drinks Per Day: 1 Total Drinks Per Week: 7 - Recreational Drug Use Recreational Drug Use: Yes Drug Use in Last 12 Months: Yes Recreational Drug Type: Reports: Marijuana/Hashish Recreational Drug Use Frequency: Daily Recreational Drug Last Use: 2 days ago Review of Systems - Review of Systems Review Of Systems: ROS reveals no pertinent complaints other than HPI. ED EXAM, GENERAL - Physical Exam Exam: See Below (See dictation) Course - Vital Signs Last Recorded V/S: Last Vital Signs Temp 97.0 F 03/08/17 10:40 Pulse 83 03/08/17 10:40 Resp 18 03/08/17 10:40 BP 103/57 L 03/08/17 10:40 Pulse Ox 88 L 03/08/17 10:40 Departure - Departure Time of Disposition: 11:39 Disposition: Home, Self-Care 01 Clinical Impression: History of femur fracture Contusion of hip, left Qualifiers: Encounter type: initial encounter Qualified Code(s): S70.02XA - Contusion of left hip, initial encounter - Discharge Information Referrals: Desirae Lainez DO [Primary Care Provider] - Additional Instructions: My general discharge The following information is given to patients seen in the emergency department who are being discharged to home. This information is to outline your options for follow-up care. We provide all patients seen in our emergency department with a follow-up referral. The need for follow-up, as well as the timing and circumstances, are variable depending upon the specifics of your emergency department visit. If you don't have a primary care physician on staff, we will provide you with a referral. We always advise you to contact your personal physician following an emergency department visit to inform them of the circumstance of the visit and for follow-up with them and/or the need for any referrals to a consulting specialist. The emergency department will also refer you to a specialist when appropriate. This referral assures that you have the opportunity for follow-up care with a specialist. All of these measure are taken in an effort to provide you with optimal care, which includes your follow-up. Under all circumstances we always encourage you to contact your private physician who remains a resource for coordinating your care. When calling for follow-up care, please make the office aware that this follow-up is from your recent emergency room visit. If for any reason you are refused follow-up, please contact the [facility] Emergency Department at and asked to speak to the emergency department charge nurse. [facility] Specialty Care - Orthopedic Clinic Professional [address], [address] [place] [address] 1. X-ray findings were normal. You do have some soft tissue swelling which he may use ice for the first 24 hours. After that he may alternate ice and heat as desired. Continue to take care prescribed pain medications as directed. 2. Follow-up with your primary care provider or orthopedic doctor in the next couple days. Return to the ED as needed and as discussed.
--- NOTE | 2017-03-08 11:28 | CT ---
EXAMINATION: Non contrast CT head. Coronal and sagittal reformats. HISTORY: Pain FINDINGS: No evidence of intra or extra axial hemorrhage, mass, midline shift, hydrocephalus or edema. No hypoattenuation changes in the major vascular territories to suggest acute infarct. No abnormal intracranial calcifications are detected. No evidence of substantial vascular calcificat ions. Paranasal sinuses and mastoid air cells are well aerated without substantial findings. Orbits and gl obes are symmetric. Pituitary fossa appears unremarkable. Calvarium is intact. No evidence of skull fracture. IMPRESSION: No acute intracranial findings.
--- NOTE | 2017-03-08 11:30 | CT ---
EXAMINATION: CT cervical spine HISTORY: Pain COMPARISON: None TECHNIQUE: Axial CT images obtained through the cervical spine without contrast. Coronal and sagittal reconstructions obtained. FINDINGS: The cervical spinal alignment is normal. The vertebral body heights and disc spaces appear well-maintained. There is no fracture or dislocation. Mild marginal osteophytes noted within the mid to lower cervical spine. Facet alignment is preserved. Paravertebral soft tissues are normal. Lung ap ices are clear. Moderate degenerative changes noted within the temporomandibular joints. IMPRESSION: 1. Grossly unremarkable cervical spine. 2. 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
--- NOTE | 2017-03-08 11:38 | CR ---
EXAMINATION: Pelvis and left hip HISTORY: Pain COMPARISON: 02/23/2017 TECHNIQUE: AP pelvis and 2 views of the left hip FINDINGS: There is an intramedullary keke with an interlocking femoral neck component noted traversing an intertrochanteric fracture of the right hip. Stable. There is screw and plate hardware with a fem oral neck component fixating the left hip. There is no definite new fracture identified. The left hip otherwise appears intact. Bone mineralization appears normal to mildly osteopenic. SI joints are sym metric. Iliopectineal lines are intact. IMPRESSION: 1. Bilateral hip hardware without an acute osseous abnormality. 2. Stable fixated right intertrochanteric fracture.
[2017-03-08 12:09] VITALS: BP 95/65
== END 2017-03-08 12:00 | disposition home or self-care (01) ==
LOC: MW.ED 10:31
DX: S70.02XA Contusion of left hip, initial encounter (principal); I10 Essential (primary) hypertension; S72.141D Displaced intertrochanteric fracture of right femur, subsequent encounter for closed fracture with routine healing; F17.210 Nicotine dependence, cigarettes, uncomplicated; Z88.8 Allergy status to other drugs, medicaments and biological substances; Z91.040 Latex allergy status; Z91.09 Other allergy status, other than to drugs and biological substances; W18.30XA Fall on same level, unspecified, initial encounter; Z79.899 Other long term (current) drug therapy
CPT/HCPCS: 70450; 70450-26; 72125; 72125-26; 73502-26-LT; 73502-LT; 99284; 99284-25

== ENCOUNTER 2017-06-07 15:48 | Emergency (ER) | payer MEDICAID ==
[2017-06-07 15:57] VITALS: BP 117/74
[2017-06-07] MEDS ORDERED: Diphtheria,Pertussis(Acell),Tetanus Vaccine 0.5 ML Syringe IM ONE (16:13)
[2017-06-07] MEDS ORDERED: Bacitracin Oint 1 GM U/D Packet TOP ONE (16:13)
--- NOTE | 2017-06-07 16:24 | EDM.PDOC ---
ED HPI GENERAL MEDICAL PROBLEM - General Chief Complaint: General Stated Complaint: PAIN IN LEFT ARM FROM FALL Time Seen by Provider: 06/07/17 15:54 - History of Present Illness INITIAL COMMENTS - FREE TEXT/NARRATIVE: HISTORY AND PHYSICAL: History of present illness: Patient is a 52-year-old female with a history of hypertension, coronary artery disease, frequent falls due to alcohol use/abuse, COPD who uses a cane for ambulation and according to the computer has had multiple falls with injuries in the past and presents after having 2 falls today and injury to her left forearm. According to the patient. She was walking and lost her balance and landed on her left forearm. She did not hit her head pass out or blackout. She has no complaints of wrist or hand pain or elbow pain, but the forearm has multiple skin tears and she is concerned about that. She just saw her provider at the clinic yesterday for a follow-up appointment due to weight loss and low blood sugars, which they have been working up and she underwent a CT scan of the chest, abdomen and pelvis on April 28 here at our hospital as an outpatient which I have reviewed. There was no explanation for her weight loss and they only saw old left rib fractures. According to the patient and [facility] changes including protein supplementation and other modalities to help with this ongoing problem of several months. Patient says her low blood sugars are not new or different. The patient admits that she vapes and does not smoke cigarettes anymore but does have long-standing COPD. Patient also has a long-standing history of alcohol use and does admit that she is continuing to drink on a daily basis but less than usual. She does admit to me that she drank today. She understands that her falls usually occur when she is drinking or her blood sugar is low per the . The patient denies any other injuries from today's fall and does not have any neck or back pain. No lower extremity complaints. No chest wall pain. No pelvis pain. No abdominal pain and has had no nausea, vomiting, shortness of breath, fevers or chills. Both the patient and said they have had loose stools over the last 3 days, but she is not concerned about that. The patient and tell me that they are not sure why they were told to come here because she has frequent falls and was just seen yesterday at [place], but that the clinic told them to come here for evaluation which is what they did. Review of systems: As per history of present illness and below otherwise all systems reviewed and negative. Past medical history: As per history of present illness and as reviewed below otherwise noncontributory. Surgical history: As per history of present illness and as reviewed below otherwise noncontributory. Social history: No reported history of drug or alcohol abuse. Family history: As per history of present illness and as reviewed below otherwise noncontributory. Physical exam: General: Well-developed, well-nourished female who is thin and ambulates with some unsteadiness with a cane in the ED, vital signs are noted by me. The patient does have a faint smell of alcohol on her breath. HEENT: Atraumatic, normocephalic, pupils reactive, negative for conjunctival pallor or scleral icterus, mucous membranes moist, throat clear, neck supple, nontender, trachea midline. No midline step-offs tenderness defects of the cervical spine Lungs: Clear to auscultation, breath sounds equal bilaterally, chest nontender. Heart: S1S2, regular in rhythm no overt murmurs Abdomen: Soft, nondistended, nontender. NABS Pelvis: Stable nontender. Genitourinary: Deferred. Rectal: Deferred. Extremities: Atraumatic, full range of motion of all extremities with the exception of the left forearm. At the left forearm. The compartment is soft and there is no soft tissue swelling, ecchymosis or palpable bony deformities from the wrist to the elbow area. There is no proximal or distal bony tenderness or abnormalities appreciated. There are several superficial skin tear seen on the dorsal aspect of the forearm and the patient is expressing concern about those. Exam, negative for cords or calf pain. Neurovascular unremarkable. Neuro: Awake, alert, oriented. Cranial nerves II through XII unremarkable. Cerebellum , gait, as described above. Motor and sensory unremarkable throughout. Exam nonfocal. Back: There are no midline step-offs tenderness defects of the thoracic or lumbar spine. No crepitus or defects or deformities of the posterior ribs Diagnostics: X-ray left forearm Therapeutics: Tdap, wound care to forearm Discussed with the patient and the at bedside. Doing further workup for her unsteady gait and her falls today. I offered CAT scan, labs and further evaluation which she is declining. I discussed with both of these people. Her O2 sat on arrival and also compared it to her last visit in the ED when it was ranging anywhere from 88-92% in February. She says she has COPD she doesn't feel more shortness of breath than usual and she does not want evaluation for that. Again, they reiterate that they do not understand what they were sent to the ED as they only wanted evaluation of the forearm. I will continue my evaluation of the forearm only. The is at the bedside conferring all of the history and his concerns only about the forearm. I also offered workup of the diarrhea and she declines. She is speaking clearly and easily in the ED without slurred speech and she is capable and clinically competent Impression: Left forearm contusion with skin tears history of frequent falls, chronic Definitive disposition and diagnosis as appropriate pending reevaluation and review of above. left hip Pain Score (Numeric/FACES): 9 - Related Data Allergies Allergy/AdvReac Type Severity Reaction Status Date / Time adhesive tape Allergy Itching Verified 06/07/17 15:57 latex Allergy Rash Verified 06/07/17 15:57 Latex, Natural Rubber Allergy Burning Verified 06/07/17 15:57 prochlorperazine Allergy Pain Verified 06/07/17 15:57 [From Compazine] prochlorperazine edisylate Allergy Anaphylactic Verified 06/07/17 15:57 [From Compazine] Shock prochlorperazine maleate Allergy Anaphylactic Verified 06/07/17 15:57 [From Compazine] Shock bandaid Allergy Rash Uncoded 06/07/17 15:57 histex Allergy Other Uncoded 06/07/17 15:57 Home Meds: Home Meds Losartan/Hydrochlorothiazide [Losartan-HCTZ 100-25 MG] 1 each PO DAILY 06/28/14 [History] Metoprolol Tartrate 50 mg PO BID 06/28/14 [History] Omeprazole 40 mg PO ACBREAKFAST 06/28/14 [History] ALPRAZolam [Xanax] 0.5 mg PO ASDIRECTED PRN 05/10/16 [History] B Magnesium 500 mg PO BID 05/10/16 [History] C Oxytocin 7.5 unit PO ASDIRECTED PRN 05/10/16 [History] Citalopram [Celexa] 20 mg PO DAILY 05/10/16 [History] Fluticasone/Vilanterol [Breo Ellipta 100-25 MCG Inhalation Kit] 1 dose INH DAILY 05/10/16 [History] Folic Acid 1 mg PO DAILY 05/10/16 [History] Ipratropium/Albuterol Sulfate [Combivent Respimat Inhal [place]] 1 spray INH ASDIRECTED PRN 05/10/16 [History] Methocarbamol 750 mg PO TID 05/10/16 [History] SUMAtriptan [Imitrex] 100 mg PO ASDIRECTED PRN 05/10/16 [History] traMADol [Ultram] 50 mg PO TID 05/10/16 [History] traZODone HCl [Trazodone HCl] 100 mg PO DAILY 05/10/16 [History] Past Medical History HEENT History: Reports: Cataract, Glaucoma, Other (See Below) Other HEENT History: wears glasses, has permanent lower dental bridge, hx of fx nose Cardiovascular History: Reports: Hypertension, NC Other Cardiovascular History: states had NC last summer...no stents put in. Denies current chest pain. Having syncopal episodes, ?orthostatic hpn? Bps 60- 80s. antihypertensive meds stopped yest. on diuretics. Will check K Respiratory History: Reports: Bronchitis, Recurrent, COPD Gastrointestinal History: Reports: GERD, Hiatal Hernia Genitourinary History: Reports: None STEM LEAD FORMER History: Reports: Other OB/BYN History: hysterectomy Musculoskeletal History: Reports: Arthritis, Fracture Other Musculoskeletal History: left hip, right ankle, left ring and pinky finger Neurological History: Reports: Concussion, Migraines, Seizure Other Neuro History: hx of alcohol induced seizure 2 years ago Psychiatric History: Reports: Anxiety, Depression Endocrine/Metabolic History: Reports: Other (See Below) Other Endocrine/Metabolic History: hypoglycemia Hematologic History: Reports: Blood Transfusion(s) Immunologic History: Reports: None Oncologic (Cancer) History: Reports: Uterine Dermatologic History: Reports: Eczema - Infectious Disease History Infectious Disease History: Reports: Chicken Pox, None - Past Surgical History Head Surgeries/Procedures: Reports: None HEENT Surgical History: Reports: Cataract Surgery Cardiovascular Surgical History: Reports: None GI Surgical History: Reports: None Female Surgical History: Reports: Section, Hysterectomy Neurological Surgical History: Reports: None Musculoskeletal Surgical History: Reports: ORIF Other Musculoskeletal Surgeries/Procedures:: left hip, right ankle Oncologic Surgical History: Reports: None Dermatological Surgical History: Reports: None Social & Family History - Family History Family Medical History: Noncontributory HEENT: Reports: Glaucoma Musculoskeletal: Reports: Arthritis, Osteoporosis Neurological: Reports: Dementia Psychiatric: Reports: ADD Endocrine/Metabolic: Reports: Diabetes, type II Dermatologic: Reports: Eczema, Psoriasis Oncologic: Reports: Bone, Brain, Lung - Tobacco Use Smoking Status *Q: Former Smoker Years of Tobacco use: 30 Packs/Tins Daily: 1 Used Tobacco, but Quit: No Month/Year Tobacco Last Used: August Second Hand Smoke Exposure: Yes - Caffeine Use Caffeine Use: Reports: Soda - Alcohol Use Days Per Week of Alcohol Use: 7 Number of Drinks Per Day: 10 Total Drinks Per Week: 70 - Recreational Drug Use Recreational Drug Use: Yes Drug Use in Last 12 Months: Yes Recreational Drug Type: Reports: Marijuana/Hashish Recreational Drug Use Frequency: Daily Recreational Drug Last Use: 2 days ago ED ROS GENERAL - Review of Systems Review Of Systems: ROS reveals no pertinent complaints other than HPI. ED EXAM, GENERAL - Physical Exam Exam: See Below (See dictation) Course - Vital Signs Last Recorded V/S: Last Vital Signs Temp 36.4 C 06/07/17 15:54 Pulse 88 06/07/17 15:54 Resp 20 06/07/17 15:54 BP 117/74 06/07/17 15:54 Pulse Ox 86 L 06/07/17 15:54 - Orders/Labs/Meds Orders: Active Orders 24 hr Category Date Time Status Blood Glucose Check, Bedside [RC] ONETIME Care 06/07/17 16:00 Active Communication Order [RC] STAT Care 06/07/17 16:13 Active Vaccines to be Administered [RC] PER UNIT ROUTINE Care 06/07/17 16:15 Active Forearm 2V Lt [CR] Stat Exams 06/07/17 16:13 Taken Labs: Laboratory Tests 06/07/17 Range/Units 15:56 POC Glucose 100 (60-110) mg/dL Meds: Medications Discontinued Medications Generic Name Dose Route Start Last Admin Trade Name Freq PRN Reason Stop Dose Admin Bacitracin 1 dose 06/07/17 16:13 Bacitracin Oint 1 Gm TOP 06/07/17 16:14 ONETIME ONE Diphtheria/Tetanus/Acell Pertussis 0.5 ml 06/07/17 16:13 Adacel IM 06/07/17 16:14 .ONCE ONE Departure - Departure Time of Disposition: 17:12 Disposition: Home, Self-Care 01 Condition: Good Clinical Impression: Contusion of forearm, left Qualifiers: Encounter type: initial encounter Qualified Code(s): S50.12XA - Contusion of left forearm, initial encounter - Discharge Information Referrals: Desirae Lainez DO [Primary Care Provider] - Forms: ED Department Discharge Additional Instructions: The following information is given to patients seen in the emergency department who are being discharged to home. This information is to outline your options for follow-up care. We provide all patients seen in our emergency department with a follow-up referral. The need for follow-up, as well as the timing and circumstances, are variable depending upon the specifics of your emergency department visit. If you don't have a primary care physician on staff, we will provide you with a referral. We always advise you to contact your personal physician following an emergency department visit to inform them of the circumstance of the visit and for follow-up with them and/or the need for any referrals to a consulting specialist. The emergency department will also refer you to a specialist when appropriate. This referral assures that you have the opportunity for followup care with a specialist. All of these measure are taken in an effort to provide you with optimal care, which includes your followup. Under all circumstances we always encourage you to contact your private physician who remains a resource for coordinating your care. When calling for followup care, please make the office aware that this follow-up is from your recent emergency room visit. If for any reason you are refused follow-up, please contact the [facility] emergency department at and ask to speak to the emergency department charge nurse. [address] [place] [address] Please call and [facility] and evaluation as we discussed and keep the wound clean and dry, applying bacitracin or Neosporin. When you're able. Please keep it open to air, so will dry out and never use Band-Aids. Please try to the more careful with ambulation to avoid falls and also try to reduce and/or eliminate her alcohol consumption. Return to ER as needed and as discussed. Continue to eat frequent small meals and use nutritional supplements as you're directed by your provider. - My Orders Last 24 Hours: My Active Orders 06/07/17 16:00 Blood Glucose Check, Bedside [RC] ONETIME 06/07/17 16:13 Communication Order [RC] STAT Forearm 2V Lt [CR] Stat 06/07/17 16:15 Vaccines to be Administered [RC] PER UNIT ROUTINE - Assessment/Plan Last 24 Hours: My Active Orders 06/07/17 16:00 Blood Glucose Check, Bedside [RC] ONETIME 06/07/17 16:13 Communication Order [RC] STAT Forearm 2V Lt [CR] Stat 06/07/17 16:15 Vaccines to be Administered [RC] PER UNIT ROUTINE
--- NOTE | 2017-06-08 13:20 | CR ---
EXAM DATE: 06/07/17 PATIENT'S AGE: 52 Patient: JON MAYBERRY Facility: [place], [place] Site . Site : 1965 Study: XRay Extremity Left Forearm [id number]/[id number] 4:33:07 PM Ordering Physician: Dipika Pelletier Final Report: Indication: Hit arm on laundry basket Technique: Two views left forearm Comparison: None Findings: Bones: Osteopenia. Alignment is normal. No acute fractures or bone lesions. Remote fracture of the ulnar styloid process. Remote appearing deformity of the distal radius. Joint spaces: Unremarkable. Soft tissues: Unremarkable. Impression: No acute abnormality. Dictated by Mariola Novak MD @ Jun 07 2017 4:43PM (Electronic Signature) Report Signed by Proxy. [facility]
== END 2017-06-07 17:20 | disposition home or self-care (01) ==
LOC: MW.ED 15:48
DX: S50.12XA Contusion of left forearm, initial encounter (principal); I10 Essential (primary) hypertension; I25.10 Atherosclerotic heart disease of native coronary artery without angina pectoris; I25.2 Old myocardial infarction; Z91.040 Latex allergy status; Z88.8 Allergy status to other drugs, medicaments and biological substances; Z79.899 Other long term (current) drug therapy; Z23 Encounter for immunization; Z87.891 Personal history of nicotine dependence; W19.XXXA Unspecified fall, initial encounter
CPT/HCPCS: 73090-26-LT; 73090-LT; 82962; 90471; 90715; 99283-25